=== PATIENT | female | born 1930 | race Caucasian/White ===

== ENCOUNTER 2019-11-23 15:44 | Emergency (ER) | payer MEDICARE ==
[~2019-11-23 15:44] MED LIST: AEC81 PO; ALBU8.5H8 IH; AMOX-426 PO; ATOR10 PO; CALC600T12 PO; DILT240T11 PO; FLUT1BLS IH; LEVO88TA7 PO; MULT-1192 PO; OLME1TAB7 PO; OMEG1CAP43 PO; OMEP20CA4 PO; UBID200C18 PO; [UNRECOGNIZED DRUG - OTHER]; [UNRECOGNIZED DRUG - OTHER]
[2019-11-23 16:17] LABS: APPEARANCE,URINE Clear (CLEAR); BILIRUBIN,URINE Negative (NEGATIVE); COLOR,URINE Yellow (YELLOW); GLUCOSE, URINE (UA) Negative (NEGATIVE); KETONES,URINE Negative (NEGATIVE); LEUKOCYTE ESTERASE ,URINE Trace (NEGATIVE); NITRATE,URINE Negative (NEGATIVE); OCCULT BLOOD,URINE Negative (NEGATIVE); PROTEIN,URINE Negative (NEGATIVE)
[2019-11-23 16:33] LABS: BACTERIA,URINE Few /HPF (None Seen); RBC,URINE 0-1 /HPF (0-1); SQUAMOUS EPITHELIAL CELL,UR 0-2 /HPF (0-2)
[2019-11-23 16:56] LABS: BASOPHILS % (AUTO) 0.7 % (0.0-5.0); EOSINOPHILS % (AUTO) 3.1 % (0.0-8.0); HEMATOCRIT 46.5 % (36-48); LYMPHOCYTES % (AUTO) 17.5 % (21.0-51.0); MEAN CORPUSCULAR HEMOGLOBIN 26.8 pg (27.0-33.0); MEAN CORPUSCULAR VOLUME 86.4 fL (79-99); MONOCYTES % (AUTO) 8.9 % (3.0-13.0); NEUTROPHILS % (AUTO) 69.3 % (40.0-77.0); PLATELET COUNT (AUTO) 255 K/uL (130-400); RED BLOOD CELL COUNT(AUTO) 5.38 MIL/uL (4.00-5.50); RED CELL DISTRIBUTION WIDTH 15.4 % (11.0-15.5); WHITE BLOOD COUNT (AUTO) 8.6 K/uL (4.8-10.8)
[2019-11-23 17:08] LABS: INR 1.05 (0.85-1.15); PARTIAL THROMBOPLASTIN TIME 25.8 SEC (26.3-35.5)
[2019-11-23 17:11] LABS: ALBUMIN 3.7 g/dL (3.5-5.0); BILIRUBIN,TOTAL 0.6 mg/dL (0.2-1.0); POTASSIUM 3.3 mmol/L (3.5-5.1)
[2019-11-23 17:16] LABS: CREATININE 0.8 mg/dL (0.5-1.5)
[2019-11-23] MEDS ORDERED: SODIUM CHLORIDE 0.9% 1000ML 1,000 ML IV ONE (17:30)
[2019-11-23] MEDS ORDERED: POTASSIUM CHLORIDE 10% ELIXIR 20 MEQ/15 ML UDCUP ONE (18:08)
[2019-11-23] MEDS ORDERED: IOHEXOL-350 75 ML VIAL IV ONE ×2 (18:31→19:37)
[2019-11-23] MEDS ORDERED: ACETAMINOPHEN 325 MG TAB ONE (21:02)
== END 2019-11-23 22:27 | disposition home or self-care (01) ==
LOC: EDH 15:44
DX: E86.0 Dehydration (principal); E87.6 Hypokalemia; H81.319 Aural vertigo, unspecified ear; R06.00 Dyspnea, unspecified; I10 Essential (primary) hypertension; E78.5 Hyperlipidemia, unspecified; Z90.710 Acquired absence of both cervix and uterus; Z98.890 Other specified postprocedural states
CPT/HCPCS: 36415; 70450; 70496; 70498; 71046; 80053; 81001; 82550; 83735; 84443; 84484; 85025; 85610; 85730; 93005; 99285; J7030; Q9967 ×2

== ENCOUNTER 2019-11-26 20:14 | Emergency (ER) | payer MEDICARE ==
[2019-11-26 20:39] LABS: BASOPHILS % (AUTO) 0.5 % (0.0-5.0); EOSINOPHILS % (AUTO) 0.5 % (0.0-8.0); HEMATOCRIT 47.8 % (36-48); LYMPHOCYTES % (AUTO) 8.2 % (21.0-51.0); MEAN CORPUSCULAR HEMOGLOBIN 26.8 pg (27.0-33.0); MEAN CORPUSCULAR HGB CONC 31.8 g/dL (32.0-36.0); MEAN CORPUSCULAR VOLUME 84.3 fL (79-99); MONOCYTES % (AUTO) 7.7 % (3.0-13.0); NEUTROPHILS % (AUTO) 82.7 % (40.0-77.0); PLATELET COUNT (AUTO) 237 K/uL (130-400); RED BLOOD CELL COUNT(AUTO) 5.67 MIL/uL (4.00-5.50); RED CELL DISTRIBUTION WIDTH 15.4 % (11.0-15.5); WHITE BLOOD COUNT (AUTO) 8.3 K/uL (4.8-10.8)
[2019-11-26 20:48] LABS: CREATININE 1.2 mg/dL (0.5-1.5); POTASSIUM 3.2 mmol/L (3.5-5.1)
[2019-11-26 20:50] LABS: INR 1.05 (0.85-1.15); PARTIAL THROMBOPLASTIN TIME 24.8 SEC (26.3-35.5)
[2019-11-26 20:53] LABS: ALBUMIN 4.1 g/dL (3.5-5.0); BILIRUBIN,TOTAL 0.6 mg/dL (0.2-1.0); TOTAL PROTEIN, SERUM 8.6 g/dL (6.0-8.3)
[2019-11-26] MEDS ORDERED: ONDANSETRON HCL 4 MG/2 ML VIAL ONE (21:03)
[2019-11-26 21:37] LABS: B-TYPE NATRIURETIC PEPTIDE 45 pg/mL (0-100)
[2019-11-26] MEDS ORDERED: DIAZEPAM 5 MG TABLET ONE (22:31)
== END 2019-11-26 23:51 | disposition home or self-care (01) ==
LOC: EDH 20:14
DX: R42 Dizziness and giddiness (principal); E78.5 Hyperlipidemia, unspecified; I10 Essential (primary) hypertension; J45.909 Unspecified asthma, uncomplicated; Z88.5 Allergy status to narcotic agent
CPT/HCPCS: 36415; 70450; 71045; 80053; 82550; 83880; 84484; 85025; 85610; 85730; 93005; 96374; 99285; J2405

== ENCOUNTER → 2019-12-27 | Outpatient (CLI) | payer MEDICARE ==
[2019-12-27 10:53] VITALS: BP 129/73
[2019-12-27 10:55] VITALS: BP 148/74
[2019-12-27 10:57] VITALS: BP 134/75
[2019-12-27 10:59] VITALS: BP 132/67
[2019-12-27] MEDS: REGADENOSON 0.4 MG/5 ML PF SYG IVP SCH (13:52)
[2019-12-27] MEDS: AMINOPHYLLINE 250MG/10 ML VIAL IV SCH (14:02)
== END | disposition home or self-care (01) ==
LOC: SHCH 08:27
PROVIDERS: ATTEND Internal Medicine Cardiovascular Disease
DX: I25.6 Silent myocardial ischemia (principal)
CPT/HCPCS: 78452; 93017; 96374; A9500 ×2; J2785; J0280